=== PATIENT | male | born 1955 | race Caucasian/White ===

== ENCOUNTER 2019-01-26 09:18 | Day surgery (SDC) | payer BC ==
[~2019-01-26 09:18] MED LIST: Bupivacaine 0.5% 50 ML MDV ONE; Lidocaine 1% with EPINEPHrine 1:100,000 50 ML MDV ONE
[2019-01-26] MEDS ORDERED: Dextrose 5%-Lactated Ringers 1,000 ML IV SCH (10:00)
[2019-01-26] MEDS ORDERED: ceFAZolin 2 GM in Premix Bag 1 BAG IV ONE (10:45)
[2019-01-26] MEDS ORDERED: Midazolam 1 MG/ML 2 ML SDV ONE (11:40)
[2019-01-26] MEDS ORDERED: Propofol 200 MG/20 ML SDV ONE ×2 (11:40→12:30)
[2019-01-26] MEDS ORDERED: fentaNYL 100 MCG/2 ML SDV ONE (11:40)
[2019-01-26 14:22] VITALS: BP 149/76
--- NOTE | 2019-01-26 22:07 | OR ---
DATE OF PROCEDURE: 01/26/2019 PREOPERATIVE DIAGNOSIS: Reducible right inguinal hernia. POSTOPERATIVE DIAGNOSIS: Reducible indirect right inguinal hernia. PROCEDURE: Repair of reducible indirect right inguinal hernia. ANESTHESIA: IV anesthesia with monitored anesthesia care. INDICATION: This is a 64-year-old white male, who is admitted for treatment of a right inguinal hernia. He first noticed when it popped out on August 11, 2017. He has always been able to reduce it. It is now starting to bother him and he presented a few days ago, requesting to be repaired. He denies predisposing factors for hernia formation other than having done some heavy work during his life. He has never had a colonoscopic exam and does not want to have one at this time. He was found on exam to have a reducible right inguinal hernia. I counseled him for repair of his right inguinal hernia with a mesh plug and patch and he gave his informed consent to proceed. DESCRIPTION OF PROCEDURE: After adequate IV anesthesia was obtained, the patient's lower abdomen, groin, and genitalia were prepped and draped in usual sterile fashion. Time-out was held. Lidocaine 1% with epinephrine in a 50:50 mix with 0.5% Marcaine was infiltrated about the right groin. A right groin incision was then made 2 cm superior and medial to the inguinal ligament. This was carried deep using Bovie cautery to the external oblique. The external oblique was opened parallel to course of its fibers from the internal to the external ring. The spermatic cord was mobilized and a Gail drain placed about it. The floor appeared to be intact. The cremasteric fibers were divided longitudinally to reveal an indirect hernia sac. This was dissected free back down the peritoneal reflection and reduced back in the abdominal cavity. The ilioinguinal nerve was divided. We obtained a large PerFix mesh plug manufactured by [employer]. The plug was placed underneath the fascia and anchored to the underside of the fascia with horizontal mattress stitches of 2-0 Vicryl. This nicely fill the defect. We approximated the internal leaves to the associated fascia. The onlay patch was obtained, cut to appropriate length and placed over the inguinal floor and anchored to itself around the spermatic cord with a horizontal mattress stitch of 3-0 Vicryl. All looked well. The external oblique was closed with a running stitch of 3-0 Vicryl. The incision was irrigated and suctioned dry. The Allison's fascia was closed with interrupted stitches of 3-0 Vicryl. A 4-0 Vicryl using a subcuticular stitch was placed to approximate the skin. Dermabond was applied. The patient tolerated the procedure well and was brought from the operating room in good condition. Obed Mireles MD /[id number]
== END 2019-01-26 14:15 | disposition home or self-care (01) ==
LOC: JP.SDS 09:18
PROVIDERS: ATTEND Surgery
DX: K40.90 Unilateral inguinal hernia, without obstruction or gangrene, not specified as recurrent (principal)
CPT/HCPCS: 49505; C1781; J0690; J2250; J2704; J3010; J3490; J7042

== ENCOUNTER 2020-06-29 00:54 | Emergency (ER) | payer BC, OTHER ==
[2020-06-29 01:06] VITALS: BP 133/82; PULSE 72
[2020-06-29] MEDS ORDERED: Bacitracin Oint 1 GM U/D Packet TOP ONE (01:24)
[2020-06-29] MEDS ORDERED: Lidocaine 1% with EPINEPHrine 1:100,000 50 ML MDV SUBCUT STA (01:24)
[2020-06-29] MEDS ORDERED: Diphtheria,Pertussis(Acell),Tetanus Vaccine 0.5 ML SDV IM ONE (01:24)
--- NOTE | 2020-06-29 02:03 | EDM.PDOC ---
ED HPI GENERAL MEDICAL PROBLEM - General Chief Complaint: Laceration Stated Complaint: CUT TO L ARM Time Seen by Provider: 06/29/20 01:20 Source of Information: Reports: Patient, Family, RN Notes Reviewed History Limitations: Reports: No Limitations - History of Present Illness INITIAL COMMENTS - FREE TEXT/NARRATIVE: 65-year-old gentleman presents emergency department today with lacerations to his left forearm unfortunately he is severely inebriated he is unsure of when this happened or how it happened he denies any other injury - Related Data Allergies Allergy/AdvReac Type Severity Reaction Status Date / Time No Known Allergies Allergy Verified 06/29/20 01:07 Home Meds: Home Meds NK [No Known Home Meds] 06/29/20 [History] Past Medical History HEENT History: Reports: Impaired Vision Psychiatric History: Reports: Addiction - Past Surgical History HEENT Surgical History: Reports: None GI Surgical History: Reports: Hernia, Inguinal Dermatological Surgical History: Reports: None Social & Family History - Family History Family Medical History: Noncontributory - Tobacco Use Smoking Status *Q: Never Smoker - Caffeine Use Caffeine Use: Reports: None - Alcohol Use Days Per Week of Alcohol Use: 5 Number of Drinks Per Day: 4 Total Drinks Per Week: 20 - Recreational Drug Use Recreational Drug Use: Yes Recreational Drug Type: Reports: Marijuana/Hashish Recreational Drug Use Frequency: Socially ED ROS GENERAL - Review of Systems Review Of Systems: Unable To Obtain Reason Not Obtained: Intoxication ED EXAM, SKIN/RASH Exam: See Below Exam Limited By: Intoxication General Appearance: Alert, No Apparent Distress Front/Back Body Diagram: 1 - 10 cm laceration linear completely through the dermis 2 - V-type laceration completely through the dermis ED SKIN PROCEDURES - Laceration/Wound Repair Left Arm Appearance: Subcutaneous, Linear, Mildly Contaminated Distal NVT: Neuro & Vascular Intact, No Tendon Injury Anesthetic Type: Local Local Anesthesia - Lidocaine (Xylocaine): 1% Plain Local Anesthetic Volume: 3cc Skin Prep: Saline Saline Irrigation (cc's): 60 Exploration/Debridement/Repair: Wound Explored, In a Bloodless Field, Explored to Base, Minimal Debridement, Foreign Material Removed Closed with: Sutures, D[place] Lac/Wound length In cm: 10 # of Sutures: 8 ([place]) Suture Type: Other ([place]) Suture Size: 3-0 # of Sutures: 3 Repaired with: Vicryl Sterile Dressing Applied: Nurse Tetanus Status Addressed: Yes Complications: No (Today) Left Wrist Appearance: Subcutaneous, Irregular Distal NVT: Neuro & Vascular Intact, No Tendon Injury Anesthetic Type: Local Local Anesthesia - Lidocaine (Xylocaine): 1% Plain Local Anesthetic Volume: 2cc Skin Prep: Saline Saline Irrigation (cc's): 60 Exploration/Debridement/Repair: Wound Explored, In a Bloodless Field, Explored to Base, Minimal Debridement, Foreign Material Removed Closed with: Sutures, [place] Lac/Wound length In cm: 6 (Horizontal mattress) Suture Size: 3-0 # of Sutures: 5 ([place]) Suture Type: Other Sterile Dressing Applied: Nurse Tetanus Status Addressed: Yes Complications: No Course - Vital Signs Last Recorded V/S: Last Vital Signs Temp 98.9 F 06/29/20 01:05 Pulse 72 06/29/20 01:05 Resp 16 06/29/20 01:05 BP 133/82 06/29/20 01:05 Pulse Ox 97 06/29/20 01:05 - Orders/Labs/Meds Orders: Active Orders 24 hr Category Date Time Status Vaccines to be Administered [RC] PER UNIT ROUTINE Care 06/29/20 01:24 Ordered Meds: Medications Discontinued Medications Generic Name Dose Route Start Last Admin Trade Name Otilioq PRN Reason Stop Dose Admin Bacitracin 2 dose 06/29/20 01:24 06/29/20 01:31 Bacitracin Oint 1 Gm TOP 06/29/20 01:25 2 dose ONETIME ONE Administration Diphtheria/Tetanus/Acell Pertussis 0.5 ml 06/29/20 01:24 06/29/20 01:31 Adacel IM 06/29/20 01:25 0.5 ml .ONCE ONE Administration Lidocaine/Epinephrine 20 ml 06/29/20 01:24 06/29/20 01:31 Xylocaine 1% With Epinephrine 1:100,000 SUBCUT 06/29/20 01:25 20 ml NOW STA Administration Departure - Departure Time of Disposition: 02:04 Disposition: Home, Self-Care 01 Condition: Fair Clinical Impression: Laceration of forearm, left Qualifiers: Encounter type: initial encounter Qualified Code(s): S51.812A - Laceration without foreign body of left forearm, initial encounter - Discharge Information Instructions: Laceration Care, Adult Referrals: PCP,None [Primary Care Provider] - Additional Instructions: Suture removal in 10 days, follow-up with primary care for removal of suture or dada or you can return to the emergency department, call with worsening of symptoms follow the wound care instruction sheet Sepsis Event Note (ED) - Evaluation Sepsis Screening Result: No Definite Risk - Focused Exam Vital Signs: Vital Signs Temp Pulse Resp BP Pulse Ox 06/29/20 01:05 98.9 F 72 16 133/82 97 - My Orders Last 24 Hours: My Active Orders 06/29/20 01:24 Vaccines to be Administered [RC] PER UNIT ROUTINE - Assessment/Plan Last 24 Hours: My Active Orders 06/29/20 01:24 Vaccines to be Administered [RC] PER UNIT ROUTINE Plan: Assessment Acuity = acute Site and laterality = 10 cm laceration left forearm linear, 1 flap 6 cm left arm Etiology = unknown Manifestations = none Location of injury = Home Lab values = none Plan Suture removal in 10 days, follow-up with primary care or return to the emergency department follow wound care instruction sheet This note was dictated using [employer] voice recognition software please call with any questions on syntax or grammar.
== END 2020-06-29 02:17 | disposition home or self-care (01) ==
LOC: JP.ED 00:54
DX: S51.812A Laceration without foreign body of left forearm, initial encounter (principal); S61.512A Laceration without foreign body of left wrist, initial encounter; F10.229 Alcohol dependence with intoxication, unspecified; Z23 Encounter for immunization; X58.XXXA Exposure to other specified factors, initial encounter
CPT/HCPCS: 12034; 12042; 90471; 90715; 99282-25